=== PATIENT | male | born 2000 | race Caucasian/White ===

== ENCOUNTER 2018-08-11 18:27 | Emergency (ER) | payer MEDICAID ==
[~2018-08-11] VITALS: Ht 177.8 cm; Wt 87.0 kg
--- NOTE | 2018-08-11 18:44 | NUR ---
Patient resting comfortably with no complaint. Patient presents to ED because his options were to come see us or go to longterm. Patient admits to taking, "a bar" of xanax. Patient is awake, alert, and oriented x4. Currently working on a ride home.
--- NOTE | 2018-08-11 18:59 | NUR ---
Several family members contacted with no answer or response to voicemail. Patient is up and ambulating independently without any difficulty. Dr. Agudelo updated on patient condition and said it is ok to send him home via taxi.
[2018-08-11] MEDS ORDERED: ondansetron 4mg rapidly disintigrating tab PO ONE (19:00)
--- NOTE | 2018-08-11 19:10 | NUR ---
Patient up with 200 feet ambulation with no assistance and a steady gait.
[2018-08-11 19:11] VITALS: BP 122/73
== END 2018-08-11 19:12 | disposition home or self-care (01) ==
LOC: ER 18:28
DX: Z00.00 Encounter for general adult medical examination without abnormal findings (principal); F12.90 Cannabis use, unspecified, uncomplicated; F19.90 Other psychoactive substance use, unspecified, uncomplicated; F17.200 Nicotine dependence, unspecified, uncomplicated
CPT/HCPCS: 99283

== ENCOUNTER 2018-08-11 20:17 | Emergency (ER) | payer MEDICAID | END 2018-08-11 21:05 | disposition left against medical advice (07) | LOC: ER 20:18 | DX: F90.9 Attention-deficit hyperactivity disorder, unspecified type (principal); Z53.21 Procedure and treatment not carried out due to patient leaving prior to being seen by health care provider ==